=== PATIENT | male | born 1970 | race Caucasian/White ===

== ENCOUNTER 2017-10-29 12:38 | Emergency (ER) | payer SELFPAY ==
[~2017-10-29] VITALS: Ht 175.3 cm; Wt 99.8 kg
[2017-10-29 14:04] LABS: Basophils # (auto) 0.1 uL; Basophils % (auto) 1.3 % (0.0-2.0); Eosinophils # (auto) 0.1 uL; Eosinophils % (auto) 0.9 % (0.0-7.0); Hematocrit 47.3 % (41.0-53.0); Hemoglobin 15.4 g/dL (13.5-17.5); Lymphocytes # (auto) 0.4 uL; Lymphocytes % (auto) 4.6 % (10.0-50.0); Mean Corpuscular Hemoglobin 29.2 pg (28.0-32.0); Mean Corpuscular Hgb Conc. 32.7 g/dL (32.0-36.0); Mean Corpuscular Volume 89.4 fL (80.0-100.0); Monocytes # (auto) 0.5 uL; Monocytes % (auto) 5.6 % (0.0-12.0); Neutrophils # (auto) 7.9 uL; Neutrophils % (auto) 87.6 % (37.0-80.0); Nucleated Red Blood Cells % 0.4 %; Platelet Count (auto) 188 10^3/uL (140-450); Red Blood Cells 5.29 10^6/uL (4.5-5.90); Red Cell Distribution Width 14.9 % (11.8-14.3)
[2017-10-29 14:20] LABS: Albumin 3.8 g/dL (3.4-5.0); BUN/Creatinine Ratio 14.6; Calcium 8.5 mg/dL (8.5-10.1); Potassium 4.2 mmol/L (3.5-5.1)
[2017-10-29 14:24] LABS: Bilirubin, Total 1.2 mg/dL (0.2-1.0); Total Protein 6.7 g/dL (6.4-8.2)
[2017-10-29] MEDS ORDERED: cloNIDine HCL 0.1 MG TAB ONE (14:56)
[2017-10-29] MEDS ORDERED: cloNIDine HCL 0.1 MG TAB PO ONE (15:15)
[2017-10-29 16:01] VITALS: BP 187/137
== END 2017-10-29 16:02 | disposition left against medical advice (07) ==
LOC: ER 12:38
DX: K29.70 Gastritis, unspecified, without bleeding (principal); I10 Essential (primary) hypertension; Z53.29 Procedure and treatment not carried out because of patient's decision for other reasons
CPT/HCPCS: 36415; 71046; 80053; 84484; 85025; 93005

== ENCOUNTER 2017-11-01 03:53 | Inpatient (IN) | payer MEDICAID ==
[~2017-11-01] VITALS: Ht 188 cm; Wt 82.3 kg
[2017-11-01] MEDS ORDERED: cloNIDine HCL 0.1 MG TAB PO ONE (04:30)
[2017-11-01] MEDS ORDERED: ASPirin 81 mg TAB PO ONE (04:30)
[2017-11-01] MEDS ORDERED: NIFEdipine 10 MG CAP ONE (05:10)
[2017-11-01] MEDS ORDERED: NIFEdipine 10 MG CAP PO ONE (05:15)
[2017-11-01 05:26] LABS: Alcohol, Urine < 3.0 mg/dL (0-5); Amphetamine Screen, Urine NEGATIVE (NEGATIVE); Barbiturate Scree,Urine NEGATIVE (NEGATIVE); Benzodiazephine Screen, Urine NEGATIVE (NEGATIVE); Cannabinoid Screen, Urine NEGATIVE (NEGATIVE); Cocaine Screen, Urine NEGATIVE (NEGATIVE); Opiate Scree,Urine NEGATIVE (NEGATIVE); Phencyclidine Screen, Urine NEGATIVE (NEGATIVE)
[2017-11-01 05:28] LABS: Urine Bacteria NONE SEEN /hpf (None Seen); Urine Blood Negative /uL (Negative); Urine Hyaline Cast FEW /lpf (0 - 2); Urine Specific Gravity 1.009 (1.001-1.035); Urine WBC 1 /hpf (0 - 3)
[2017-11-01 05:30] LABS: Basophils # (auto) 0 uL; Basophils % (auto) 0.4 % (0.0-2.0); Eosinophils # (auto) 0.1 uL; Eosinophils % (auto) 0.9 % (0.0-7.0); Hematocrit 44.8 % (41.0-53.0); Hemoglobin 15.1 g/dL (13.5-17.5); Lymphocytes # (auto) 1.1 uL; Lymphocytes % (auto) 11.8 % (10.0-50.0); Mean Corpuscular Hemoglobin 30.1 pg (28.0-32.0); Mean Corpuscular Hgb Conc. 33.6 g/dL (32.0-36.0); Mean Corpuscular Volume 89.6 fL (80.0-100.0); Monocytes # (auto) 0.7 uL; Monocytes % (auto) 7.6 % (0.0-12.0); Neutrophils # (auto) 7.6 uL; Neutrophils % (auto) 79.3 % (37.0-80.0); Nucleated Red Blood Cells % 0.7 %; Platelet Count (auto) 201 10^3/uL (140-450); Red Cell Distribution Width 14.7 % (11.8-14.3); White Blood Cell 9.6 10^3/uL (4.4-10.8)
[2017-11-01 05:31] LABS: Albumin 3.6 g/dL (3.4-5.0); BUN/Creatinine Ratio 16.3; Bilirubin, Total 0.6 mg/dL (0.2-1.0); Calcium 8.5 mg/dL (8.5-10.1); Magnesium 2.5 mg/dL (1.6-2.6); Potassium 3.9 mmol/L (3.5-5.1); Total Protein 6.8 g/dL (6.4-8.2)
[2017-11-01 05:43] LABS: INR 1.11 (0.9-1.15); Partial Thromboplastin Time 24.3 sec (22.64-33.71); Prothrombin Time 12.1 sec (9.37-12.3)
[2017-11-01 06:32] LABS: Amylase 20 U/L (25-115); Lipase 71 U/L (73-393)
[2017-11-01] MEDS ORDERED: FUROSEMIDE 40 MG/4 ML VIAL IV ONE (08:30)
[2017-11-01] MEDS ORDERED: MORPHINE SULFATE 4 MG/ML SYR/VIAL IV PRN ×2 (08:45)
[2017-11-01] MEDS ORDERED: PROMETHAZINE HCL 25 MG/ML 1ML IV PRN (08:45)
[2017-11-01] MEDS ORDERED: LACTULOSE 20Gm/30ML SOLN PO PRN (08:45)
[2017-11-01] MEDS ORDERED: NITROGLYCERIN 0.4 MG SL TAB SL PRN (08:45)
[2017-11-01] MEDS ORDERED: POTASSIUM CHL 20 Meq TABLET PO SCH (10:00)
[2017-11-01] MEDS ORDERED: ENALAPRIL MALEATE 2.5 MG TAB PO SCH (10:00)
[2017-11-01] MEDS ORDERED: FUROSEMIDE 40 MG/4 ML VIAL IV SCH (10:00)
[2017-11-01] MEDS: ASPirin 81 mg TAB PO SCH (10:22)
[2017-11-01] MEDS: ENOXAPARIN SOD 40 MG/0.4 ML SYRINGE SC SCH (10:23)
[2017-11-01] MEDS: NITROGLYCERIN 0.2MG/HR TOPICAL PATCH TD SCH (10:23)
[2017-11-01] MEDS: PANTOPRAZOLE 40 MG TAB PO SCH (10:24)
[2017-11-01] MEDS ORDERED: OPTISON 3ml Vial for INJ IV ONE (10:34)
[2017-11-01] MEDS ORDERED: ENALAPRIL MALEATE 2.5 MG TAB PO ONE (12:45)
[2017-11-01] MEDS ORDERED: FUROSEMIDE 20 MG/2 ML VIAL IV ONE (14:00)
[2017-11-01] MEDS: SODIUM CHLOR 0.9% PF (SALINE LOCK) 10ML VIAL IV SCH ×2 (14:05→21:31)
[2017-11-01] MEDS: hydrALAZINE HCL 20 MG/ML VL IV PRN (14:06)
[2017-11-01] MEDS ORDERED: NITROGLYCERIN 50MG/250ML 250 ML IV SCH (15:45)
[2017-11-01] MEDS: NICARDIPINE 25MG/250ML BAG KIT 250 ML IV SCH ×2 (17:00→21:31)
[2017-11-01] MEDS: POTASSIUM CHL 20 Meq TABLET PO SCH (18:10)
[2017-11-01] MEDS: ENALAPRIL MALEATE 2.5 MG TAB PO SCH (21:31)
[2017-11-02] VITALS (49 sets, daily range): BP systolic 129–184; BP diastolic 75–121
[2017-11-02 04:09] LABS: Basophils # (auto) 0 uL; Basophils % (auto) 0.4 % (0.0-2.0); Eosinophils # (auto) 0.1 uL; Hematocrit 46.7 % (41.0-53.0); Lymphocytes # (auto) 0.8 uL; Mean Corpuscular Hemoglobin 29.8 pg (28.0-32.0); Mean Corpuscular Hgb Conc. 34.3 g/dL (32.0-36.0); Monocytes # (auto) 1.1 uL; Monocytes % (auto) 10.6 % (0.0-12.0); Neutrophils # (auto) 8.1 uL; Nucleated Red Blood Cells % 0.1 %; Platelet Count (auto) 187 10^3/uL (140-450); Red Blood Cells 5.37 10^6/uL (4.5-5.90); Red Cell Distribution Width 14.8 % (11.8-14.3); White Blood Cell 10.1 10^3/uL (4.4-10.8)
[2017-11-02 04:34] LABS: Albumin 3.7 g/dL (3.4-5.0); BUN/Creatinine Ratio 16.2; Calcium 8.7 mg/dL (8.5-10.1); Potassium 3.2 mmol/L (3.5-5.1)
[2017-11-02 04:38] LABS: Bilirubin, Total 1.1 mg/dL (0.2-1.0); Total Protein 6.8 g/dL (6.4-8.2)
[2017-11-02] MEDS: FUROSEMIDE 40 MG/4 ML VIAL IV SCH ×2 (06:21→18:06)
[2017-11-02] MEDS: SODIUM CHLOR 0.9% PF (SALINE LOCK) 10ML VIAL IV SCH ×3 (06:26→22:10)
[2017-11-02] MEDS: NICARDIPINE 25MG/250ML BAG KIT 250 ML IV SCH ×2 (07:48→08:00)
[2017-11-02] MEDS: POTASSIUM CHL 20 Meq TABLET PO SCH ×2 (08:19→18:06)
[2017-11-02] MEDS: HYDROcodone-ACET 5/325MG TAB PO PRN (09:09)
[2017-11-02] MEDS ORDERED: POTASSIUM CHL 20 Meq TABLET PO ONE ×2 (10:00→12:00)
[2017-11-02] MEDS: ASPirin 81 mg TAB PO SCH (10:30)
[2017-11-02] MEDS: CARVEDILOL 3.125 MG TAB PO SCH ×2 (10:30→22:09)
[2017-11-02] MEDS: NITROGLYCERIN 0.2MG/HR TOPICAL PATCH TD SCH (10:32)
[2017-11-02] MEDS: PANTOPRAZOLE 40 MG TAB PO SCH (10:32)
[2017-11-02] MEDS: ENOXAPARIN SOD 40 MG/0.4 ML SYRINGE SC SCH (10:32)
[2017-11-02] MEDS: ENALAPRIL MALEATE 2.5 MG TAB PO SCH ×2 (10:32→22:10)
[2017-11-02 13:59] LABS: Hepatitis B Surface Antibody Negative
[2017-11-02 14:12] LABS: Hepatitis B Surface Antigen Negative (Negative)
[2017-11-02 14:37] LABS: Hepatitis C Antibody Negative (Negative)
[2017-11-02 14:38] LABS: Hepatitis A Total Antibody Negative; Hepatitis B Core Total AB Negative
[2017-11-02] MEDS: hydrALAZINE HCL 20 MG/ML VL IV PRN ×2 (16:45→23:49)
[2017-11-03] VITALS (7 sets, daily range): BP systolic 114–174; BP diastolic 62–113
[2017-11-03] MEDS: hydrALAZINE HCL 20 MG/ML VL IV PRN ×6 (03:56→23:55)
[2017-11-03] MEDS: HYDROcodone-ACET 5/325MG TAB PO PRN (05:09)
[2017-11-03] MEDS: SODIUM CHLOR 0.9% PF (SALINE LOCK) 10ML VIAL IV SCH ×3 (05:30→21:29)
[2017-11-03] MEDS: FUROSEMIDE 40 MG/4 ML VIAL IV SCH ×2 (05:30→17:42)
[2017-11-03 05:56] LABS: BUN/Creatinine Ratio 14.2; Magnesium 2.2 mg/dL (1.6-2.6); Potassium 3.8 mmol/L (3.5-5.1)
[2017-11-03] MEDS: POTASSIUM CHL 20 Meq TABLET PO SCH ×2 (08:42→17:40)
[2017-11-03] MEDS: ASPirin 81 mg TAB PO SCH (10:15)
[2017-11-03] MEDS: CARVEDILOL 3.125 MG TAB PO SCH ×2 (10:15→21:28)
[2017-11-03] MEDS: PANTOPRAZOLE 40 MG TAB PO SCH (10:16)
[2017-11-03] MEDS: ENALAPRIL MALEATE 2.5 MG TAB PO SCH ×2 (10:16→21:29)
[2017-11-03] MEDS: NITROGLYCERIN 0.2MG/HR TOPICAL PATCH TD SCH (10:17)
[2017-11-03] MEDS: ENOXAPARIN SOD 40 MG/0.4 ML SYRINGE SC SCH (10:18)
[2017-11-03] MEDS: LORazepam 0.5 MG TAB PO PRN (16:08)
[2017-11-04 00:04] VITALS: BP 156/101
[2017-11-04] MEDS: TEMAZEPAM 15 MG CAP PO PRN ×2 (01:41→23:15)
[2017-11-04] MEDS: ACETAMINOPHEN 500 MG TAB PO PRN ×2 (01:43→16:21)
[2017-11-04] MEDS: hydrALAZINE HCL 20 MG/ML VL IV PRN ×5 (01:52→15:27)
[2017-11-04] MEDS: LORazepam 0.5 MG TAB PO PRN (03:24)
[2017-11-04] MEDS ORDERED: hydrALAZINE HCL 20 MG/ML VL ONE (03:34)
[2017-11-04 04:08] VITALS: BP 179/104
[2017-11-04 05:48] LABS: Basophils # (auto) 0 uL; Basophils % (auto) 0.3 % (0.0-2.0); Eosinophils # (auto) 0.1 uL; Eosinophils % (auto) 0.7 % (0.0-7.0); Hematocrit 51.2 % (41.0-53.0); Hemoglobin 17.4 g/dL (13.5-17.5); Lymphocytes # (auto) 0.6 uL; Mean Corpuscular Hemoglobin 29.7 pg (28.0-32.0); Mean Corpuscular Hgb Conc. 33.9 g/dL (32.0-36.0); Mean Corpuscular Volume 87.8 fL (80.0-100.0); Monocytes % (auto) 9.3 % (0.0-12.0); Neutrophils # (auto) 9.4 uL; Neutrophils % (auto) 84.7 % (37.0-80.0); Platelet Count (auto) 208 10^3/uL (140-450); Red Blood Cells 5.84 10^6/uL (4.5-5.90); Red Cell Distribution Width 15.1 % (11.8-14.3); White Blood Cell 11.1 10^3/uL (4.4-10.8)
[2017-11-04 06:05] LABS: Calcium 8.9 mg/dL (8.5-10.1); Magnesium 2.4 mg/dL (1.6-2.6)
[2017-11-04 06:06] LABS: BUN/Creatinine Ratio 15.7
[2017-11-04] MEDS: SODIUM CHLOR 0.9% PF (SALINE LOCK) 10ML VIAL IV SCH ×3 (06:31→21:07)
[2017-11-04] MEDS: FUROSEMIDE 40 MG/4 ML VIAL IV SCH ×2 (06:31→17:25)
[2017-11-04 07:50] VITALS: BP 156/102
[2017-11-04] MEDS: POTASSIUM CHL 20 Meq TABLET PO SCH ×2 (08:55→17:23)
[2017-11-04] MEDS: ENOXAPARIN SOD 40 MG/0.4 ML SYRINGE SC SCH (09:17)
[2017-11-04] MEDS: NITROGLYCERIN 0.2MG/HR TOPICAL PATCH TD SCH (09:17)
[2017-11-04] MEDS: ENALAPRIL MALEATE 2.5 MG TAB PO SCH ×3 (09:18→21:07)
[2017-11-04] MEDS: ASPirin 81 mg TAB PO SCH (09:19)
[2017-11-04] MEDS: PANTOPRAZOLE 40 MG TAB PO SCH (09:19)
[2017-11-04] MEDS: CARVEDILOL 3.125 MG TAB PO SCH ×2 (09:19→21:06)
[2017-11-04 11:59] VITALS: BP 169/115
[2017-11-04 15:50] VITALS: BP 163/102
[2017-11-04] MEDS ORDERED: amLODIPine BESYLATE 5 MG TAB PO SCH (17:00)
[2017-11-04] MEDS: HYDROcodone-ACET 5/325MG TAB PO PRN (21:11)
[2017-11-04 23:37] VITALS: BP 180/97
[2017-11-05] VITALS (8 sets, daily range): BP systolic 146–179; BP diastolic 101–130
[2017-11-05 05:20] LABS: Basophils # (auto) 0 uL; Basophils % (auto) 0.3 % (0.0-2.0); Eosinophils # (auto) 0.1 uL; Lymphocytes # (auto) 0.9 uL
[2017-11-05 05:22] LABS: Eosinophils % (auto) 1.1 % (0.0-7.0); Hematocrit 54.5 % (41.0-53.0); Hemoglobin 18.1 g/dL (13.5-17.5); Lymphocytes % (auto) 9.1 % (10.0-50.0); Mean Corpuscular Hemoglobin 29.4 pg (28.0-32.0); Mean Corpuscular Hgb Conc. 33.2 g/dL (32.0-36.0); Mean Corpuscular Volume 88.4 fL (80.0-100.0); Monocytes # (auto) 1.2 uL; Monocytes % (auto) 12.7 % (0.0-12.0); Neutrophils # (auto) 7.4 uL; Neutrophils % (auto) 76.8 % (37.0-80.0); Platelet Count (auto) 226 10^3/uL (140-450); Red Blood Cells 6.16 10^6/uL (4.5-5.90); Red Cell Distribution Width 15.1 % (11.8-14.3); White Blood Cell 9.7 10^3/uL (4.4-10.8)
[2017-11-05 05:31] LABS: BUN/Creatinine Ratio 16.7; Calcium 9.1 mg/dL (8.5-10.1); Magnesium 2.7 mg/dL (1.6-2.6); Potassium 3.9 mmol/L (3.5-5.1)
[2017-11-05] MEDS: FUROSEMIDE 40 MG/4 ML VIAL IV SCH (06:13)
[2017-11-05] MEDS: SODIUM CHLOR 0.9% PF (SALINE LOCK) 10ML VIAL IV SCH ×3 (06:13→21:03)
[2017-11-05] MEDS ORDERED: ADENOSINE 68 MG in GIVE UN-DILUTED 0 ML IV ONE (08:15)
[2017-11-05] MEDS: POTASSIUM CHL 20 Meq TABLET PO SCH ×2 (11:15→17:56)
[2017-11-05] MEDS: PANTOPRAZOLE 40 MG TAB PO SCH (11:16)
[2017-11-05] MEDS: ASPirin 81 mg TAB PO SCH (11:16)
[2017-11-05] MEDS: ENALAPRIL MALEATE 2.5 MG TAB PO SCH ×2 (11:20→21:03)
[2017-11-05] MEDS: ENOXAPARIN SOD 40 MG/0.4 ML SYRINGE SC SCH (11:20)
[2017-11-05] MEDS: SPIRONOLACTONE 25 MG TAB PO SCH (11:21)
[2017-11-05] MEDS ORDERED: CARVEDILOL 3.125 MG TAB PO ONE (14:30)
[2017-11-05] MEDS: FUROSEMIDE 40 MG TAB PO SCH (17:57)
[2017-11-05] MEDS: CARVEDILOL 12.5 MG TAB PO SCH (21:03)
[2017-11-05] MEDS ORDERED: CARVEDILOL 12.5 MG TAB PO SCH (22:00)
[2017-11-05] MEDS: TEMAZEPAM 15 MG CAP PO PRN (22:48)
[2017-11-06 04:18] VITALS: BP 151/112
[2017-11-06 05:16] LABS: Basophils # (auto) 0 uL; Eosinophils # (auto) 0.2 uL; Eosinophils % (auto) 2.5 % (0.0-7.0); Hemoglobin 18.4 g/dL (13.5-17.5); Neutrophils # (auto) 4.5 uL; White Blood Cell 6.9 10^3/uL (4.4-10.8)
[2017-11-06 05:18] LABS: Basophils % (auto) 0.5 % (0.0-2.0); Hematocrit 55.1 % (41.0-53.0); Lymphocytes # (auto) 1.3 uL; Lymphocytes % (auto) 18.8 % (10.0-50.0); Mean Corpuscular Hemoglobin 29.5 pg (28.0-32.0); Mean Corpuscular Hgb Conc. 33.4 g/dL (32.0-36.0); Mean Corpuscular Volume 88.3 fL (80.0-100.0); Monocytes # (auto) 0.9 uL; Monocytes % (auto) 13.3 % (0.0-12.0); Neutrophils % (auto) 64.9 % (37.0-80.0); Nucleated Red Blood Cells % 0.1 %; Platelet Count (auto) 199 10^3/uL (140-450); Red Blood Cells 6.24 10^6/uL (4.5-5.90); Red Cell Distribution Width 14.7 % (11.8-14.3)
[2017-11-06 05:32] LABS: BUN/Creatinine Ratio 19.7; Calcium 9.2 mg/dL (8.5-10.1); Potassium 4.2 mmol/L (3.5-5.1)
[2017-11-06] MEDS: SODIUM CHLOR 0.9% PF (SALINE LOCK) 10ML VIAL IV SCH (05:59)
[2017-11-06] MEDS: FUROSEMIDE 40 MG TAB PO SCH (05:59)
[2017-11-06 08:00] VITALS: BP 154/108
[2017-11-06] MEDS: POTASSIUM CHL 20 Meq TABLET PO SCH (08:17)
[2017-11-06] MEDS: ENOXAPARIN SOD 40 MG/0.4 ML SYRINGE SC SCH ×2 (09:22→09:27)
[2017-11-06] MEDS: ENALAPRIL MALEATE 2.5 MG TAB PO SCH (09:22)
[2017-11-06] MEDS: CARVEDILOL 12.5 MG TAB PO SCH (09:23)
[2017-11-06] MEDS: PANTOPRAZOLE 40 MG TAB PO SCH (09:23)
[2017-11-06] MEDS: SPIRONOLACTONE 25 MG TAB PO SCH (09:23)
[2017-11-06] MEDS: ASPirin 81 mg TAB PO SCH (09:23)
[2017-11-06 12:00] VITALS: BP 141/107
[2017-11-06 13:07] VITALS: BP 141/107
== END 2017-11-06 13:09 | disposition home or self-care (01) | DRG 194 ==
LOC: ER 03:53 → TELE 03:54 → ICU WEST 11-02 01:49 → DOU IN ICU 11-02 15:38
PROVIDERS: ADMIT Internal Medicine; ATTEND Family Medicine
DX: I13.0 Hypertensive heart and chronic kidney disease with heart failure and stage 1 through stage 4 chronic kidney disease, or unspecified chronic kidney disease (principal); N17.0 Acute kidney failure with tubular necrosis; I16.0 Hypertensive urgency; I44.7 Left bundle-branch block, unspecified; I42.0 Dilated cardiomyopathy; R79.89 Other specified abnormal findings of blood chemistry; I50.21 Acute systolic (congestive) heart failure; N18.3 Chronic kidney disease, stage 3 (moderate); Z79.82 Long term (current) use of aspirin; Z79.899 Other long term (current) drug therapy; Z82.49 Family history of ischemic heart disease and other diseases of the circulatory system; Z87.891 Personal history of nicotine dependence
CPT/HCPCS: 36415; 70450; 71045; 71046; 76700; 78452; 80048; 80053; 80061; 80307; 81001; 82150; 82550; 83690; 83735; 83880; 84443; 84484; 85025; 85379; 85610; 85652; 85730; 86141; 86704; 86706; 86708; 86803; 87081; 87340; 93005; 93017; 93306; 96374; J0153; Q9956

== ENCOUNTER 2019-11-29 06:42 | Inpatient (IN) | payer MEDICAID ==
[2019-11-29] VITALS (18 sets, daily range): BP systolic 124–148; BP diastolic 79–98
[~2019-11-29] VITALS: Ht 175.3 cm; Wt 75.2 kg
[2019-11-29] MEDS ORDERED: SODIUM CHLORIDE 0.9% 1,000 ML IV ONE (07:10)
[2019-11-29] MEDS ORDERED: SODIUM CHLORIDE 0.9% 500 ML IV ONE (07:10)
[2019-11-29] MEDS ORDERED: METOCLOPRAMIDE HCL 5MG/ml INJ 2ml VIAL IV ONE (07:15)
[2019-11-29] MEDS ORDERED: MORPHINE SULF INJ 2 MG/ML SYRINGE 1ML IV ONE (07:15)
[2019-11-29 08:37] LABS: Calcium 8.8 mg/dL (8.5-10.1); Potassium 3.7 mmol/L (3.5-5.1)
[2019-11-29 08:38] LABS: Basophils # (auto) 0 10 ^3/uL (0-0.2); Eosinophils # (auto) 0 10 ^3/uL (0-0.8); Eosinophils % (auto) 13.3 % (0.0-7.0); Hematocrit 20.2 % (41.0-53.0); Lymphocytes # (auto) 0.1 10 ^3/uL (0.4-5.4); Mean Corpuscular Hemoglobin 26.5 pg (28.0-32.0); Mean Corpuscular Hgb Conc. 33.4 g/dL (32.0-36.0); Mean Corpuscular Volume 79.5 fL (80.0-100.0); Monocytes # (auto) 0 10 ^3/uL (0-1.3); Monocytes % (auto) 1.3 % (0.0-12.0); Neutrophils # (auto) 0 10 ^3/uL (1.6-8.6); Neutrophils % (auto) 3.5 % (37.0-80.0); Nucleated Red Blood Cells % 0.9 %; Red Blood Cells 2.54 10^6/uL (4.5-5.90); Red Cell Distribution Width 16.3 % (11.8-14.3)
[2019-11-29 08:40] LABS: Albumin 3.1 g/dL (3.4-5.0); BUN/Creatinine Ratio 15.8; Lymphocytes % (auto) 81.9 % (10.0-50.0); Magnesium 1.4 mg/dL (1.6-2.6)
[2019-11-29 08:43] LABS: Bilirubin, Total 1.1 mg/dL (0.2-1.0); Hemoglobin 6.7 g/dL (13.5-17.5); Platelet Count (auto) 8 10^3/uL (140-450); Total Protein 6.7 g/dL (6.4-8.2); White Blood Cell 0.1 10^3/uL (4.4-10.8)
[2019-11-29 09:44] LABS: Urine Bacteria FEW /hpf (None Seen); Urine Blood Negative /uL (Negative); Urine Specific Gravity 1.013 (1.001-1.035); Urine WBC 1 /hpf (0 - 3)
[2019-11-29] MEDS ORDERED: ACETAMINOPHEN 325 MG TAB PO ONE (10:00)
[2019-11-29 10:20] LABS: INR 1.11 (0.9-1.15); Partial Thromboplastin Time 32.4 sec (23.64-32.05)
[2019-11-29] MEDS: MAGNESIUM SULFATE 1GM/100ML 100 ML IV SCH ×2 (10:20→11:49)
[2019-11-29] MEDS ORDERED: PIPERACILLIN-TAZOB 3.375GM 100 ML IV ONE ×2 (11:30)
[2019-11-29] MEDS ORDERED: FLUCONAZOLE 200MG/100ML 100 ML IV ONE (11:45)
[2019-11-29 11:47] LABS: Urine Bacteria NONE SEEN /hpf (None Seen); Urine Blood 2+ /uL (Negative); Urine Specific Gravity 1.015 (1.001-1.035); Urine WBC 99 /hpf (0 - 3)
[2019-11-29] MEDS: PIPERACILLIN-TAZOB 3.375GM 100 ML IV SCH ×2 (12:24→18:00)
[2019-11-29] MEDS: SODIUM CHLORIDE 0.9% 1,000 ML IV SCH ×2 (12:58→22:42)
[2019-11-29] MEDS ORDERED: FILGRASTIM (TBO) 300 MCG/0.5 ML SYRG SC ONE (13:15)
[2019-11-29] MEDS: ACYCLOVIR SOD 50MG/ML 500 MG in D5W 5% 100 ML IV SCH ×2 (14:00→22:42)
[2019-11-29] MEDS: LINEZOLID 600MG/300ML 300 ML IV SCH ×2 (14:12→22:41)
[2019-11-29] MEDS: HYDROcodone-ACET 5/325MG TAB PO PRN (14:14)
[2019-11-29] MEDS: PROMETHAZINE HCL 25 MG/ML 1ML IV PRN ×2 (14:14→20:20)
[2019-11-29] MEDS ORDERED: ACYCLOVIR SODIUM (50 MG/ ML) 10 ML VIAL IV ONE (22:38)
[2019-11-29] MEDS: FAMOTIDINE (10MG/ML) 2ML VL IV SCH (22:41)
[2019-11-30] VITALS (14 sets, daily range): BP systolic 123–161; BP diastolic 83–111
[2019-11-30] MEDS: PIPERACILLIN-TAZOB 3.375GM 100 ML IV SCH ×5 (00:24→23:50)
[2019-11-30] MEDS: TEMAZEPAM 15 MG CAP PO PRN ×2 (00:27→21:13)
[2019-11-30] MEDS: HYDROcodone-ACET 5/325MG TAB PO PRN ×3 (00:27→12:38)
[2019-11-30] MEDS: PROMETHAZINE HCL 25 MG/ML 1ML IV PRN ×5 (00:27→18:26)
[2019-11-30] MEDS: ACETAMINOPHEN 500 MG TAB PO PRN ×3 (04:15→21:03)
[2019-11-30] MEDS: ACYCLOVIR SOD 50MG/ML 500 MG in D5W 5% 100 ML IV SCH ×3 (05:12→22:00)
[2019-11-30] MEDS: SODIUM CHLORIDE 0.9% 1,000 ML IV SCH ×4 (05:14→23:29)
[2019-11-30 07:06] LABS: Albumin 2.2 g/dL (3.4-5.0); Calcium 7.2 mg/dL (8.5-10.1); Potassium 3.2 mmol/L (3.5-5.1)
[2019-11-30 07:09] LABS: BUN/Creatinine Ratio 14.7; Bilirubin, Total 2.7 mg/dL (0.2-1.0); Total Protein 5.3 g/dL (6.4-8.2)
[2019-11-30 07:12] LABS: Basophils # (auto) 0 10 ^3/uL (0-0.2); Eosinophils # (auto) 0 10 ^3/uL (0-0.8); Eosinophils % (auto) 12.4 % (0.0-7.0); Hematocrit 21.3 % (41.0-53.0); Hemoglobin 7.3 g/dL (13.5-17.5); Lymphocytes # (auto) 0.1 10 ^3/uL (0.4-5.4); Mean Corpuscular Hemoglobin 27.9 pg (28.0-32.0); Mean Corpuscular Hgb Conc. 34.4 g/dL (32.0-36.0); Mean Corpuscular Volume 81.3 fL (80.0-100.0); Monocytes # (auto) 0 10 ^3/uL (0-1.3); Monocytes % (auto) 2.1 % (0.0-12.0); Neutrophils # (auto) 0 10 ^3/uL (1.6-8.6); Neutrophils % (auto) 2.6 % (37.0-80.0); Red Blood Cells 2.62 10^6/uL (4.5-5.90); Red Cell Distribution Width 16.8 % (11.8-14.3)
[2019-11-30 07:14] LABS: Lymphocytes % (auto) 82.9 % (10.0-50.0)
[2019-11-30 07:15] LABS: Platelet Count (auto) 20 10^3/uL (140-450)
[2019-11-30 07:18] LABS: White Blood Cell 0.1 10^3/uL (4.4-10.8)
[2019-11-30] MEDS: FAMOTIDINE (10MG/ML) 2ML VL IV SCH ×2 (08:33→21:12)
[2019-11-30] MEDS: LINEZOLID 600MG/300ML 300 ML IV SCH ×2 (08:34→21:13)
[2019-11-30] MEDS ORDERED: FILGRASTIM (TBO) 300 MCG/0.5 ML SYRG SC SCH (10:00)
[2019-11-30] MEDS ORDERED: FLUCONAZOLE 200MG/100ML 100 ML IV SCH (10:00)
[2019-11-30] MEDS ORDERED: POTASSIUM CHL 20 Meq TABLET PO ONE (10:00)
[2019-11-30] MEDS ORDERED: SPIR50TA5 PO (11:38)
[2019-11-30] MEDS ORDERED: FURO40TA4 PO (11:38)
[2019-11-30] MEDS ORDERED: LISI40TA PO (11:38)
[2019-11-30] MEDS ORDERED: PAR20T PO (11:38)
[2019-11-30] MEDS ORDERED: ATO40T PO (11:38)
[2019-11-30] MEDS ORDERED: CAR125T PO (11:38)
[2019-11-30] MEDS ORDERED: CLON0.1T PO (11:38)
[2019-11-30] MEDS ORDERED: FUROSEMIDE 40 MG/4 ML VIAL IV ONE (13:15)
[2019-11-30] MEDS ORDERED: FUROSEMIDE 100 MG/10ML VIAL IV ONE (13:30)
[2019-11-30] MEDS ORDERED: AZITHROMYCIN 250 MG TAB PO ONE (14:30)
[2019-11-30] MEDS ORDERED: oxyCODONE ER 10 MG TAB PO ONE (14:45)
[2019-11-30] MEDS ORDERED: POLYETHYLENE GLYCOL 17 GM PWDR PO ONE (14:45)
[2019-11-30 21:16] LABS: Basophils # (auto) 0 10 ^3/uL (0-0.2); Monocytes # (auto) 0 10 ^3/uL (0-1.3); Neutrophils # (auto) 0 10 ^3/uL (1.6-8.6)
[2019-11-30 21:18] LABS: Eosinophils # (auto) 0.1 10 ^3/uL (0-0.8); Hematocrit 27.1 % (41.0-53.0); Hemoglobin 9.1 g/dL (13.5-17.5); Lymphocytes # (auto) 0.3 10 ^3/uL (0.4-5.4); Mean Corpuscular Hemoglobin 27.7 pg (28.0-32.0); Mean Corpuscular Hgb Conc. 33.7 g/dL (32.0-36.0); Mean Corpuscular Volume 82.2 fL (80.0-100.0); Monocytes % (auto) 3.5 % (0.0-12.0); Nucleated Red Blood Cells % 8.6 %; Platelet Count (auto) 21 10^3/uL (140-450); Red Blood Cells 3.29 10^6/uL (4.5-5.90)
[2019-11-30 21:20] LABS: Lymphocytes % (auto) 70.1 % (10.0-50.0)
[2019-11-30 21:21] LABS: Eosinophils % (auto) 25.4 % (0.0-7.0)
[2019-11-30 21:28] LABS: White Blood Cell 0.4 10^3/uL (4.4-10.8)
[2019-11-30 21:32] LABS: % Iron Saturation 31.8 % (20-55)
[2019-11-30 21:48] LABS: Lactate Dehydrogenase 3744 U/L (87-241)
[2019-11-30] MEDS: oxyCODONE ER 10 MG TAB PO SCH (22:00)
[2019-11-30 22:40] LABS: CRP High Sensitivity > 19.0 mg/dL (< 0.3)
[2019-12-01] VITALS (7 sets, daily range): BP systolic 118–142; BP diastolic 77–105
[2019-12-01] MEDS: PROMETHAZINE HCL 25 MG/ML 1ML IV PRN ×2 (01:34→07:31)
[2019-12-01] MEDS: SODIUM CHLORIDE 0.9% 1,000 ML IV SCH ×3 (04:05→17:46)
[2019-12-01 05:18] LABS: Basophils # (auto) 0 10 ^3/uL (0-0.2); Eosinophils # (auto) 0 10 ^3/uL (0-0.8); Hemoglobin 10.7 g/dL (13.5-17.5); Lymphocytes # (auto) 0.1 10 ^3/uL (0.4-5.4); Monocytes # (auto) 0 10 ^3/uL (0-1.3); Neutrophils # (auto) 0 10 ^3/uL (1.6-8.6)
[2019-12-01] MEDS: PIPERACILLIN-TAZOB 3.375GM 100 ML IV SCH ×3 (05:20→17:46)
[2019-12-01] MEDS: HYDROcodone-ACET 5/325MG TAB PO PRN (05:21)
[2019-12-01 05:26] LABS: Eosinophils % (auto) 5.4 % (0.0-7.0); Hematocrit 31.3 % (41.0-53.0); Mean Corpuscular Hgb Conc. 34.2 g/dL (32.0-36.0); Mean Corpuscular Volume 82.1 fL (80.0-100.0); Monocytes % (auto) 3.7 % (0.0-12.0); Neutrophils % (auto) 2.5 % (37.0-80.0); Red Blood Cells 3.81 10^6/uL (4.5-5.90); Red Cell Distribution Width 17.6 % (11.8-14.3)
[2019-12-01 05:34] LABS: Albumin 2.3 g/dL (3.4-5.0); BUN/Creatinine Ratio 11.1; Calcium 7.5 mg/dL (8.5-10.1); Magnesium 1.4 mg/dL (1.6-2.6); Potassium 3.2 mmol/L (3.5-5.1)
[2019-12-01 05:36] LABS: Bilirubin, Total 3.3 mg/dL (0.2-1.0); Total Protein 6.4 g/dL (6.4-8.2)
[2019-12-01 05:49] LABS: Lymphocytes % (auto) 88.4 % (10.0-50.0); Nucleated Red Blood Cells % 9.9 %
[2019-12-01 05:50] LABS: Platelet Count (auto) 17 10^3/uL (140-450); White Blood Cell 0.1 10^3/uL (4.4-10.8)
[2019-12-01] MEDS: ACYCLOVIR SOD 50MG/ML 500 MG in D5W 5% 100 ML IV SCH ×4 (06:12→21:58)
[2019-12-01] MEDS ORDERED: MAGNESIUM SULFATE 1GM/100ML 100 ML IV ONE (06:15)
[2019-12-01] MEDS ORDERED: POTASSIUM CHLORIDE 20 MEQ, LIDOCAINE 1% (LOCAL ANESTH.) 2 ML in SODIUM CHL 0.9% 100 ML IV ONE (06:15)
[2019-12-01] MEDS: MORPHINE SULF INJ 2 MG/ML SYRINGE 1ML IV PRN ×3 (08:36→20:45)
[2019-12-01] MEDS: LINEZOLID 600MG/300ML 300 ML IV SCH ×2 (08:51→10:22)
[2019-12-01] MEDS ORDERED: POTASSIUM CHL 20 Meq TABLET PO ONE (09:15)
[2019-12-01] MEDS: POLYETHYLENE GLYCOL 17 GM PWDR PO SCH (10:00)
[2019-12-01] MEDS: LISINOPRIL 20 MG TAB PO SCH (10:00)
[2019-12-01] MEDS ORDERED: SOD CHL 0.45% 1,000 ML IV SCH (10:15)
[2019-12-01] MEDS: MAGNESIUM SULFATE 1GM/100ML 100 ML IV SCH ×3 (10:22→14:27)
[2019-12-01] MEDS: AZITHROMYCIN 250 MG TAB PO SCH (10:23)
[2019-12-01] MEDS: FAMOTIDINE (10MG/ML) 2ML VL IV SCH ×2 (10:23→21:58)
[2019-12-01] MEDS: CARVEDILOL 12.5 MG TAB PO SCH ×2 (10:24→21:57)
[2019-12-01] MEDS: oxyCODONE ER 10 MG TAB PO SCH ×2 (10:24→21:58)
[2019-12-01 10:53] LABS: Carcinoembryonic Antigen < 0.50 ng/mL (<5.0 OR =); Ferritin > 1650.0 ng/mL (10-322)
[2019-12-01] MEDS: ACETAMINOPHEN 500 MG TAB PO PRN (11:28)
[2019-12-01] MEDS: FILGRASTIM(TBO) 480 MCG/0.8 ML SYRG SC SCH (11:36)
[2019-12-01 16:29] LABS: Calcium 6.9 mg/dL (8.5-10.1); Magnesium 2.5 mg/dL (1.6-2.6); Potassium 3.1 mmol/L (3.5-5.1)
[2019-12-01 16:31] LABS: BUN/Creatinine Ratio 10.1
[2019-12-01] MEDS: SOD CHL 0.9%/ KCL 40MEQ 1,000 ML IV SCH (19:28)
[2019-12-02] VITALS (12 sets, daily range): BP systolic 119–144; BP diastolic 81–105
[2019-12-02] MEDS: PIPERACILLIN-TAZOB 3.375GM 100 ML IV SCH ×3 (00:38→11:39)
[2019-12-02] MEDS: SOD CHL 0.9%/ KCL 40MEQ 1,000 ML IV SCH ×3 (02:00→17:41)
[2019-12-02] MEDS: ACYCLOVIR SOD 50MG/ML 500 MG in D5W 5% 100 ML IV SCH ×2 (06:20→13:56)
[2019-12-02 08:05] LABS: Basophils # (auto) 0 10 ^3/uL (0-0.2); Eosinophils # (auto) 0 10 ^3/uL (0-0.8); Hemoglobin 7.9 g/dL (13.5-17.5); Lymphocytes # (auto) 0.1 10 ^3/uL (0.4-5.4); Monocytes # (auto) 0 10 ^3/uL (0-1.3); Neutrophils # (auto) 0 10 ^3/uL (1.6-8.6); Red Cell Distribution Width 17.3 % (11.8-14.3)
[2019-12-02 08:07] LABS: Eosinophils % (auto) 7.7 % (0.0-7.0); Hematocrit 23.4 % (41.0-53.0); Mean Corpuscular Hemoglobin 27.6 pg (28.0-32.0); Mean Corpuscular Hgb Conc. 33.9 g/dL (32.0-36.0); Mean Corpuscular Volume 81.6 fL (80.0-100.0); Monocytes % (auto) 14.8 % (0.0-12.0); Neutrophils % (auto) 5.3 % (37.0-80.0); Nucleated Red Blood Cells % 1.9 %; Red Blood Cells 2.87 10^6/uL (4.5-5.90)
[2019-12-02 08:10] LABS: Lymphocytes % (auto) 72.2 % (10.0-50.0)
[2019-12-02 08:11] LABS: INR 1.21 (0.9-1.15); Partial Thromboplastin Time 41.7 sec (23.64-32.05)
[2019-12-02 08:14] LABS: Platelet Count (auto) 9 10^3/uL (140-450); White Blood Cell 0.1 10^3/uL (4.4-10.8)
[2019-12-02] MEDS: PROMETHAZINE HCL 25 MG/ML 1ML IV PRN (08:35)
[2019-12-02] MEDS: MORPHINE SULF INJ 2 MG/ML SYRINGE 1ML IV PRN (08:35)
[2019-12-02] MEDS: CARVEDILOL 12.5 MG TAB PO SCH ×2 (09:51→21:49)
[2019-12-02] MEDS: POLYETHYLENE GLYCOL 17 GM PWDR PO SCH (09:51)
[2019-12-02] MEDS: FAMOTIDINE (10MG/ML) 2ML VL IV SCH ×2 (09:51→21:48)
[2019-12-02] MEDS: oxyCODONE ER 10 MG TAB PO SCH ×2 (09:52→21:49)
[2019-12-02] MEDS: FILGRASTIM(TBO) 480 MCG/0.8 ML SYRG SC SCH (09:52)
[2019-12-02] MEDS: AZITHROMYCIN 250 MG TAB PO SCH (09:52)
[2019-12-02] MEDS: LINEZOLID 600MG/300ML 300 ML IV SCH (10:00)
[2019-12-02] MEDS: LISINOPRIL 20 MG TAB PO SCH (10:14)
[2019-12-02] MEDS ORDERED: POTASSIUM CHL 20 Meq TABLET PO ONE (10:15)
[2019-12-02] MEDS ORDERED: ALPRAZolam 0.5 MG TAB PO PRN (10:15)
[2019-12-02] MEDS: POTASSIUM CHL 20MEQ/100ML 100 ML IV SCH ×3 (11:00→17:40)
[2019-12-02] MEDS ORDERED: VANCOMYCIN PER PHARMACY 0 MG IV SCH (17:00)
[2019-12-02] MEDS: CEFEPIME 2 GM in SODIUM CHL 0.9% 50 ML IV SCH (19:58)
[2019-12-02] MEDS: HYDROcodone-ACET 5/325MG TAB PO PRN (19:59)
[2019-12-02] MEDS: VANCOMYCIN 1GM/250ML 250 ML IV SCH (21:48)
[2019-12-03] MEDS: SOD CHL 0.9%/ KCL 40MEQ 1,000 ML IV SCH ×2 (02:00→10:17)
[2019-12-03] MEDS: HYDROcodone-ACET 5/325MG TAB PO PRN (04:12)
[2019-12-03 05:00] VITALS: BP 140/97
[2019-12-03 07:05] LABS: Basophils # (auto) 0 10 ^3/uL (0-0.2); Eosinophils # (auto) 0 10 ^3/uL (0-0.8); Lymphocytes # (auto) 0.1 10 ^3/uL (0.4-5.4); Mean Corpuscular Hgb Conc. 33.7 g/dL (32.0-36.0); Neutrophils # (auto) 0.1 10 ^3/uL (1.6-8.6); Red Blood Cells 2.98 10^6/uL (4.5-5.90)
[2019-12-03 07:06] LABS: Basophils % (auto) 0.6 % (0.0-2.0); Eosinophils % (auto) 1.2 % (0.0-7.0); Hematocrit 24.5 % (41.0-53.0); Hemoglobin 8.2 g/dL (13.5-17.5); Lymphocytes % (auto) 39.9 % (10.0-50.0); Mean Corpuscular Hemoglobin 27.7 pg (28.0-32.0); Mean Corpuscular Volume 82.2 fL (80.0-100.0); Monocytes # (auto) 0 10 ^3/uL (0-1.3); Monocytes % (auto) 17.4 % (0.0-12.0); Neutrophils % (auto) 40.9 % (37.0-80.0); Nucleated Red Blood Cells % 1.3 %; Platelet Count (auto) 32 10^3/uL (140-450)
[2019-12-03 07:27] LABS: BUN/Creatinine Ratio 10.9; Calcium 7.4 mg/dL (8.5-10.1); Potassium 4.7 mmol/L (3.5-5.1)
[2019-12-03 07:29] LABS: White Blood Cell 0.3 10^3/uL (4.4-10.8)
[2019-12-03 08:00] VITALS: BP 142/101
[2019-12-03] MEDS: CEFEPIME 2 GM in SODIUM CHL 0.9% 50 ML IV SCH (08:13)
[2019-12-03] MEDS: NITROGLYCERIN 0.4 MG SL TAB SL PRN ×3 (08:55→09:06)
[2019-12-03 09:00] VITALS: BP 142/101
[2019-12-03] MEDS: MORPHINE SULF INJ 2 MG/ML SYRINGE 1ML IV PRN (09:14)
[2019-12-03] MEDS: POLYETHYLENE GLYCOL 17 GM PWDR PO SCH (10:00)
[2019-12-03] MEDS: oxyCODONE ER 10 MG TAB PO SCH (10:00)
[2019-12-03] MEDS: VANCOMYCIN 1GM/250ML 250 ML IV SCH (10:17)
[2019-12-03] MEDS: FAMOTIDINE (10MG/ML) 2ML VL IV SCH (10:18)
[2019-12-03] MEDS: FILGRASTIM(TBO) 480 MCG/0.8 ML SYRG SC SCH (10:19)
[2019-12-03] MEDS: CARVEDILOL 12.5 MG TAB PO SCH (10:19)
[2019-12-03] MEDS: AZITHROMYCIN 250 MG TAB PO SCH (10:20)
[2019-12-03] MEDS: LISINOPRIL 20 MG TAB PO SCH (10:20)
[2019-12-03 13:00] VITALS: BP 114/80
[2019-12-03 15:18] VITALS: BP 114/80
== END 2019-12-03 15:55 | disposition home or self-care (01) | DRG 720 ==
LOC: ER 06:42 → TELE 06:43 → DOU IN ICU 16:12 → TELE-EAST 12-01 09:17
PROVIDERS: ADMIT Internal Medicine; ATTEND Internal Medicine
PROC: 30233R1 Transfusion of Nonautologous Platelets into Peripheral Vein, Percutaneous Approach (ICD-10-PCS; principal; 2019-11-29)
PROC: 30233N1 Transfusion of Nonautologous Red Blood Cells into Peripheral Vein, Percutaneous Approach (ICD-10-PCS; 2019-11-29)
DX: A41.9 Sepsis, unspecified organism (principal); D61.810 Antineoplastic chemotherapy induced pancytopenia; N17.9 Acute kidney failure, unspecified; D69.6 Thrombocytopenia, unspecified; E11.22 Type 2 diabetes mellitus with diabetic chronic kidney disease; E44.1 Mild protein-calorie malnutrition; E83.42 Hypomagnesemia; I13.0 Hypertensive heart and chronic kidney disease with heart failure and stage 1 through stage 4 chronic kidney disease, or unspecified chronic kidney disease; I50.22 Chronic systolic (congestive) heart failure; E87.1 Hypo-osmolality and hyponatremia; N18.9 Chronic kidney disease, unspecified; E05.90 Thyrotoxicosis, unspecified without thyrotoxic crisis or storm; I44.7 Left bundle-branch block, unspecified; M51.37 Other intervertebral disc degeneration, lumbosacral region; R50.81 Fever presenting with conditions classified elsewhere; B96.4 Proteus (mirabilis) (morganii) as the cause of diseases classified elsewhere; B95.7 Other staphylococcus as the cause of diseases classified elsewhere; K36 Other appendicitis; N39.0 Urinary tract infection, site not specified; C64.2 Malignant neoplasm of left kidney, except renal pelvis; Z90.79 Acquired absence of other genital organ(s); Z85.47 Personal history of malignant neoplasm of testis; Z82.49 Family history of ischemic heart disease and other diseases of the circulatory system; Z93.6 Other artificial openings of urinary tract status; Z79.899 Other long term (current) drug therapy; Z83.3 Family history of diabetes mellitus; Z68.24 Body mass index [BMI] 24.0-24.9, adult; Z03.818 Encounter for observation for suspected exposure to other biological agents ruled out
CPT/HCPCS: 36415; 71046; 71250; 74176; 80048; 80053; 81001; 82105; 82270; 82378; 82607; 82728; 82746; 83540; 83550; 83605; 83615; 83735; 84443; 84484; 84702; 85025; 85045; 85610; 85730; 86141; 86300; 86301; 86850; 86900; 86901; 86920; 87040; 87070; 87081; 87086; 87088; 87186; 87635; 87804; 87880; 93005; 93306; G0378; J1447; J1450; J2001; J2543; J3480; J3490; J7060

== ENCOUNTER 2019-12-10 22:22 | Emergency (ER) | payer MEDICAID, SELFPAY ==
[~2019-12-10] VITALS: Ht 188 cm; Wt 81.2 kg
[~2019-12-10 22:22] MED LIST: ATO40T PO; CAR125T PO; CLON0.1T PO; FURO40TA4 PO; LISI40TA PO; PAR20T PO; SPIR50TA5 PO
[2019-12-10 23:27] LABS: Hemoglobin 10.7 g/dL (13.5-17.5); Mean Corpuscular Hemoglobin 27.8 pg (28.0-32.0); Mean Corpuscular Hgb Conc. 33.6 g/dL (32.0-36.0); Mean Corpuscular Volume 82.8 fL (80.0-100.0); Platelet Count (auto) 430 10^3/uL (140-450); Red Blood Cells 3.87 10^6/uL (4.5-5.90); Red Cell Distribution Width 18.3 % (11.8-14.3); White Blood Cell 14.3 10^3/uL (4.4-10.8)
[2019-12-10 23:45] LABS: Albumin 2.8 g/dL (3.4-5.0); BUN/Creatinine Ratio 7.1; Calcium 8.5 mg/dL (8.5-10.1); Potassium 3.3 mmol/L (3.5-5.1)
[2019-12-10 23:46] LABS: Basophils % (manual) 0 (0.0-2.0); Blast Cells 0; Eosinophils % (manual) 0 (0-7); Myelocytes % 0; Promyelocytes % 0; Reactive Lymphocytes 0
[2019-12-10 23:48] LABS: Bilirubin, Total 0.7 mg/dL (0.2-1.0); Total Protein 6.8 g/dL (6.4-8.2)
[2019-12-11 00:35] LABS: Band Neutrophils % (manual) 16; Lymphocytes % (manual) 19 (10.0-50.0); Metamyelocytes % 1; Monocytes % (manual) 15 (0-12)
[2019-12-11 00:55] LABS: Urine Bacteria FEW /hpf (None Seen); Urine Blood 3+ /uL (Negative); Urine Mucus FEW (None Seen); Urine Specific Gravity 1.012 (1.001-1.035); Urine WBC 15 /hpf (0 - 3)
[2019-12-11] MEDS ORDERED: SODIUM CHLORIDE 0.9% 1,000 ML IV ONE (01:00)
[2019-12-11] MEDS ORDERED: ONDANSETRON HCL 4 MG/2 ML VIAL IV ONE (01:30)
[2019-12-11] MEDS ORDERED: HYDROcodone-ACET 5/325MG TAB PO ONE (03:15)
[2019-12-11] MEDS ORDERED: CIPROFLOXACIN HCL 500 MG TAB PO ONE (03:15)
[2019-12-11 03:30] VITALS: BP 135/95
== END 2019-12-11 03:39 | disposition home or self-care (01) ==
LOC: ER 22:23
DX: R19.00 Intra-abdominal and pelvic swelling, mass and lump, unspecified site (principal); N39.0 Urinary tract infection, site not specified; I10 Essential (primary) hypertension; Z79.899 Other long term (current) drug therapy
CPT/HCPCS: 36415; 74176; 80053; 81001; 83605; 83690; 83880; 85007; 85027; 87086; 96361; 96374; 99284; J2405; J7030

== ENCOUNTER 2020-08-27 18:34 | Inpatient (IN) | payer MEDICAID ==
[~2020-08-27] VITALS: Ht 188 cm; Wt 54.4 kg
[~2020-08-27 18:34] MED LIST changes: -LISI40TA PO; +LISI40TA11 PO
[2020-08-28 05:21] LABS: Urine Bacteria MANY /hpf (None Seen); Urine Blood 2+ /uL (Negative); Urine Hyaline Cast FEW /lpf (0 - 2); Urine Mucus FEW (None Seen); Urine Specific Gravity 1.021 (1.001-1.035); Urine WBC 396 /hpf (0 - 3); Urine WBC Clumps PRESENT /hpf (None Seen)
[2020-08-28] MEDS ORDERED: cefTRIAXone 1GM/50ML D5W 50 ML IV ONE (11:45)
[2020-08-28] MEDS ORDERED: SODIUM CHLORIDE 0.9% 1,000 ML IVB ONE (11:45)
[2020-08-28 12:57] LABS: Basophils # (auto) 0 10 ^3/uL (0-0.2); Basophils % (auto) 0.6 % (0.0-2.0); Eosinophils # (auto) 0 10 ^3/uL (0-0.8); Eosinophils % (auto) 0.5 % (0.0-7.0); Hematocrit 33.7 % (41.0-53.0); Hemoglobin 11.6 g/dL (13.5-17.5); Lymphocytes # (auto) 0.5 10 ^3/uL (0.4-5.4); Lymphocytes % (auto) 6.7 % (10.0-50.0); Mean Corpuscular Hemoglobin 28.1 pg (28.0-32.0); Mean Corpuscular Hgb Conc. 34.3 g/dL (32.0-36.0); Mean Corpuscular Volume 81.9 fL (80.0-100.0); Monocytes # (auto) 0.4 10 ^3/uL (0-1.3); Neutrophils % (auto) 86.2 % (37.0-80.0); Platelet Count (auto) 226 10^3/uL (140-450); Red Blood Cells 4.11 10^6/uL (4.5-5.90); Red Cell Distribution Width 17.8 % (11.8-14.3); White Blood Cell 6.9 10^3/uL (4.4-10.8)
[2020-08-28 13:35] LABS: Albumin 3.3 g/dL (3.4-5.0); Calcium 9.2 mg/dL (8.5-10.1)
[2020-08-28 13:39] LABS: BUN/Creatinine Ratio 12.1; Bilirubin, Total 0.4 mg/dL (0.2-1.0); Total Protein 7.2 g/dL (6.4-8.2)
[2020-08-28] MEDS ORDERED: NITROGLYCERIN 0.4 MG SL TAB SL PRN (14:45)
[2020-08-28] MEDS ORDERED: MORPHINE SULF INJ 2 MG/ML SYRINGE 1ML IV PRN (14:45)
[2020-08-28] MEDS ORDERED: ACETAMINOPHEN 500 MG TAB PO PRN (14:45)
[2020-08-28 15:31] LABS: INR 1.03 (0.9-1.15); Partial Thromboplastin Time 27.9 sec (23.0-31.2)
[2020-08-28] MEDS: SODIUM CHLORIDE 0.9% 1,000 ML IV SCH ×2 (17:55→20:18)
[2020-08-28] MEDS: DOCUSATE SOD 100 MG CAP PO SCH (20:18)
[2020-08-28] MEDS: HYDROcodone-ACET 5/325MG TAB PO PRN (20:21)
[2020-08-29] MEDS: MORPHINE SULF INJ 2 MG/ML SYRINGE 1ML IV PRN ×3 (02:05→17:32)
[2020-08-29] MEDS: ONDANSETRON HCL 4 MG/2 ML VIAL IV PRN ×2 (02:06→17:33)
[2020-08-29] MEDS: SODIUM CHLORIDE 0.9% 1,000 ML IV SCH ×2 (06:00→14:45)
[2020-08-29] MEDS: HYDROcodone-ACET 5/325MG TAB PO PRN (06:00)
[2020-08-29 07:36] LABS: Basophils # (auto) 0 10 ^3/uL (0-0.2); Basophils % (auto) 0.3 % (0.0-2.0); Eosinophils # (auto) 0 10 ^3/uL (0-0.8); Eosinophils % (auto) 0.1 % (0.0-7.0); Hematocrit 30.5 % (41.0-53.0); Hemoglobin 10.5 g/dL (13.5-17.5); Lymphocytes # (auto) 0.3 10 ^3/uL (0.4-5.4); Lymphocytes % (auto) 2.4 % (10.0-50.0); Mean Corpuscular Hemoglobin 28.4 pg (28.0-32.0); Mean Corpuscular Hgb Conc. 34.5 g/dL (32.0-36.0); Mean Corpuscular Volume 82.3 fL (80.0-100.0); Monocytes # (auto) 0.6 10 ^3/uL (0-1.3); Monocytes % (auto) 5.7 % (0.0-12.0); Neutrophils # (auto) 9.7 10 ^3/uL (1.6-8.6); Neutrophils % (auto) 91.5 % (37.0-80.0); Nucleated Red Blood Cells % 0.1 %; Platelet Count (auto) 173 10^3/uL (140-450); Red Cell Distribution Width 17.8 % (11.8-14.3); White Blood Cell 10.6 10^3/uL (4.4-10.8)
[2020-08-29 08:05] LABS: Calcium 8.3 mg/dL (8.5-10.1); Potassium 4.1 mmol/L (3.5-5.1)
[2020-08-29] MEDS: cefTRIAXone 1GM/50ML D5W 50 ML IV SCH (09:51)
[2020-08-29] MEDS: FAMOTIDINE 20 MG TAB PO SCH (09:51)
[2020-08-29] MEDS: DOCUSATE SOD 100 MG CAP PO SCH ×2 (09:51→23:25)
[2020-08-29] MEDS ORDERED: cloNIDine HCL 0.1 MG TAB PO PRN (14:00)
[2020-08-29] MEDS: FUROSEMIDE 40 MG TAB PO SCH (18:26)
[2020-08-29] MEDS ORDERED: ATORVASTATIN 20 MG TAB PO SCH (22:00)
[2020-08-29] MEDS: CARVEDILOL 12.5 MG TAB PO SCH (23:24)
[2020-08-30] MEDS: HYDROcodone-ACET 5/325MG TAB PO PRN (01:15)
[2020-08-30] MEDS: SODIUM CHLORIDE 0.9% 1,000 ML IV SCH ×2 (04:43→09:13)
[2020-08-30 05:52] LABS: Basophils # (auto) 0 10 ^3/uL (0-0.2); Basophils % (auto) 0.4 % (0.0-2.0); Eosinophils # (auto) 0 10 ^3/uL (0-0.8); Eosinophils % (auto) 0.2 % (0.0-7.0); Hematocrit 32.5 % (41.0-53.0); Hemoglobin 11.2 g/dL (13.5-17.5); Lymphocytes # (auto) 0.3 10 ^3/uL (0.4-5.4); Lymphocytes % (auto) 3.5 % (10.0-50.0); Mean Corpuscular Hemoglobin 28.3 pg (28.0-32.0); Mean Corpuscular Hgb Conc. 34.5 g/dL (32.0-36.0); Mean Corpuscular Volume 82.1 fL (80.0-100.0); Monocytes # (auto) 0.5 10 ^3/uL (0-1.3); Monocytes % (auto) 5.9 % (0.0-12.0); Neutrophils # (auto) 8.3 10 ^3/uL (1.6-8.6); Nucleated Red Blood Cells % 0.1 %; Platelet Count (auto) 167 10^3/uL (140-450); Red Blood Cells 3.96 10^6/uL (4.5-5.90); Red Cell Distribution Width 17.9 % (11.8-14.3); White Blood Cell 9.3 10^3/uL (4.4-10.8)
[2020-08-30] MEDS: FUROSEMIDE 40 MG TAB PO SCH (06:00)
[2020-08-30 06:09] LABS: Calcium 8.9 mg/dL (8.5-10.1); Potassium 4.3 mmol/L (3.5-5.1)
[2020-08-30 06:11] LABS: BUN/Creatinine Ratio 11.4
[2020-08-30 09:12] VITALS: BP 133/104
[2020-08-30] MEDS: DOCUSATE SOD 100 MG CAP PO SCH (09:13)
[2020-08-30] MEDS: CARVEDILOL 12.5 MG TAB PO SCH (09:13)
[2020-08-30] MEDS: cefTRIAXone 1GM/50ML D5W 50 ML IV SCH (09:13)
[2020-08-30] MEDS: FAMOTIDINE 20 MG TAB PO SCH (09:14)
[2020-08-30] MEDS ORDERED: PARoxetine 20 MG TAB PO SCH (10:00)
[2020-08-30] MEDS ORDERED: SPIRONOLACTONE 25 MG TAB PO SCH (10:00)
[2020-08-30] MEDS ORDERED: amLODIPine BESYLATE 5 MG TAB PO SCH (10:00)
[2020-08-30] MEDS ORDERED: LISINOPRIL 20 MG TAB PO SCH (10:00)
[2020-09-02] MEDS ORDERED: CEPH250C PO (13:55)
== END 2020-08-30 14:00 | disposition left against medical advice (07) | DRG 466 ==
LOC: ER 18:34 → OVERFLOW 08-28 14:41
PROVIDERS: ADMIT Nurse Practitioner Acute Care; ATTEND Internal Medicine
DX: T83.022A Displacement of nephrostomy catheter, initial encounter (principal); N18.30 Chronic kidney disease, stage 3 unspecified; N13.6 Pyonephrosis; N17.0 Acute kidney failure with tubular necrosis; D63.8 Anemia in other chronic diseases classified elsewhere; E87.1 Hypo-osmolality and hyponatremia; R64 Cachexia; I12.9 Hypertensive chronic kidney disease with stage 1 through stage 4 chronic kidney disease, or unspecified chronic kidney disease; Z53.29 Procedure and treatment not carried out because of patient's decision for other reasons; C64.9 Malignant neoplasm of unspecified kidney, except renal pelvis; R19.09 Other intra-abdominal and pelvic swelling, mass and lump; F17.210 Nicotine dependence, cigarettes, uncomplicated; Z20.828 Contact with and (suspected) exposure to other viral communicable diseases; Y84.6 Urinary catheterization as the cause of abnormal reaction of the patient, or of later complication, without mention of misadventure at the time of the procedure; Z79.899 Other long term (current) drug therapy; Z82.49 Family history of ischemic heart disease and other diseases of the circulatory system; Z83.3 Family history of diabetes mellitus; Y92.89 Other specified places as the place of occurrence of the external cause; Z85.47 Personal history of malignant neoplasm of testis; Z85.528 Personal history of other malignant neoplasm of kidney; Z68.1 Body mass index [BMI] 19.9 or less, adult; E44.1 Mild protein-calorie malnutrition; Z46.6 Encounter for fitting and adjustment of urinary device
CPT/HCPCS: 36415; 74176; 80048; 80053; 81001; 83735; 85025; 85610; 85730; 87086; 87088; 87186; 87426; 96365; G0378; J0696; J2405

== ENCOUNTER 2020-08-30 16:11 | Inpatient (IN) | payer MEDICAID ==
[~2020-08-30] VITALS: Ht 188 cm; Wt 52.2 kg
[2020-08-30] MEDS ORDERED: MORPHINE SULF INJ 2 MG/ML SYRINGE 1ML IV PRN (18:30)
[2020-08-30] MEDS ORDERED: ACETAMINOPHEN 500 MG TAB PO PRN (18:30)
[2020-08-30] MEDS ORDERED: SODIUM CHLORIDE 0.9% 1,000 ML IV SCH (18:30)
[2020-08-30] MEDS ORDERED: HYDROcodone-ACET 5/325MG TAB PO PRN (18:30)
[2020-08-30] MEDS ORDERED: ONDANSETRON HCL 4 MG/2 ML VIAL IV PRN (18:30)
[2020-08-30 18:58] LABS: Basophils # (auto) 0 10 ^3/uL (0-0.2); Basophils % (auto) 0.2 % (0.0-2.0); Eosinophils # (auto) 0 10 ^3/uL (0-0.8); Eosinophils % (auto) 0.2 % (0.0-7.0); Hematocrit 31.7 % (41.0-53.0); Hemoglobin 10.9 g/dL (13.5-17.5); Lymphocytes # (auto) 0.3 10 ^3/uL (0.4-5.4); Lymphocytes % (auto) 2.5 % (10.0-50.0); Mean Corpuscular Hemoglobin 28.1 pg (28.0-32.0); Mean Corpuscular Hgb Conc. 34.3 g/dL (32.0-36.0); Monocytes # (auto) 0.4 10 ^3/uL (0-1.3); Neutrophils # (auto) 9.6 10 ^3/uL (1.6-8.6); Neutrophils % (auto) 93.1 % (37.0-80.0); Platelet Count (auto) 238 10^3/uL (140-450); Red Blood Cells 3.87 10^6/uL (4.5-5.90); Red Cell Distribution Width 17.7 % (11.8-14.3); White Blood Cell 10.3 10^3/uL (4.4-10.8)
[2020-08-30 19:09] LABS: INR 1.07 (0.9-1.15)
[2020-08-30 19:14] LABS: Alanine Aminotransferase 14 U/L (16-61); Anion Gap 11 (5-15); Aspartate Aminotransferase 24 U/L (15-37); BUN/Creatinine Ratio 13.7; Blood Urea Nitrogen 28 mg/dL (7-18); Calcium 8.7 mg/dL (8.5-10.1); Carbon Dioxide 22 mmol/L (21-32); Chloride 96 mmol/L (98-107); GFR African American 44 mL/min; GFR Non-African American 37 mL/min; Glucose 175 mg/dL (74-106); Lipase 55 U/L (73-393); Magnesium 2.1 mg/dL (1.6-2.6); Sodium 129 mmol/L (136-145)
[2020-08-30 19:20] LABS: Alkaline Phosphatase 148 U/L (45-117); Bilirubin, Total 0.5 mg/dL (0.2-1.0)
[2020-08-31] VITALS: BP 154/117
[2020-08-31] MEDS ORDERED: cefTRIAXone 1GM/50ML D5W 50 ML IV SCH (09:00)
[2020-09-02] MEDS ORDERED: CEPH250C PO (13:55)
== END 2020-08-31 07:00 | disposition left against medical advice (07) | DRG 466 ==
LOC: ER 16:11 → OVERFLOW 18:32
PROVIDERS: ADMIT Nurse Practitioner Acute Care; ATTEND Internal Medicine
DX: T83.022A Displacement of nephrostomy catheter, initial encounter (principal); C62.92 Malignant neoplasm of left testis, unspecified whether descended or undescended; D63.1 Anemia in chronic kidney disease; F17.210 Nicotine dependence, cigarettes, uncomplicated; I12.9 Hypertensive chronic kidney disease with stage 1 through stage 4 chronic kidney disease, or unspecified chronic kidney disease; N13.6 Pyonephrosis; R64 Cachexia; Z20.828 Contact with and (suspected) exposure to other viral communicable diseases; Y73.2 Prosthetic and other implants, materials and accessory gastroenterology and urology devices associated with adverse incidents; E87.1 Hypo-osmolality and hyponatremia; N17.0 Acute kidney failure with tubular necrosis; Z43.6 Encounter for attention to other artificial openings of urinary tract; Z79.899 Other long term (current) drug therapy; Z82.49 Family history of ischemic heart disease and other diseases of the circulatory system; Z83.3 Family history of diabetes mellitus; Z85.47 Personal history of malignant neoplasm of testis; Z90.79 Acquired absence of other genital organ(s); N18.31 Chronic kidney disease, stage 3a
CPT/HCPCS: 36415; 80053; 83605; 83690; 83735; 84484; 85025; 85610; 87040; G0378; J0696

== ENCOUNTER 2020-09-01 08:46 | Inpatient (IN) | payer MEDICAID ==
[~2020-09-01] VITALS: Ht 188 cm; Wt 53.1 kg
[2020-09-01 10:21] LABS: Basophils # (auto) 0 10 ^3/uL (0-0.2); Basophils % (auto) 0.1 % (0.0-2.0); Eosinophils # (auto) 0 10 ^3/uL (0-0.8); Hematocrit 34.4 % (41.0-53.0); Hemoglobin 11.5 g/dL (13.5-17.5); Lymphocytes # (auto) 0.3 10 ^3/uL (0.4-5.4); Lymphocytes % (auto) 1.7 % (10.0-50.0); Mean Corpuscular Hemoglobin 27.8 pg (28.0-32.0); Mean Corpuscular Hgb Conc. 33.4 g/dL (32.0-36.0); Mean Corpuscular Volume 83.1 fL (80.0-100.0); Monocytes # (auto) 0.9 10 ^3/uL (0-1.3); Monocytes % (auto) 5.6 % (0.0-12.0); Neutrophils # (auto) 14.6 10 ^3/uL (1.6-8.6); Neutrophils % (auto) 92.6 % (37.0-80.0); Red Blood Cells 4.14 10^6/uL (4.5-5.90); White Blood Cell 15.8 10^3/uL (4.4-10.8)
[2020-09-01 10:37] LABS: Potassium 4.1 mmol/L (3.5-5.1)
[2020-09-01 10:44] LABS: Albumin 2.8 g/dL (3.4-5.0); BUN/Creatinine Ratio 11.9; Bilirubin, Total 0.8 mg/dL (0.2-1.0); Calcium 9.6 mg/dL (8.5-10.1); Total Protein 7.3 g/dL (6.4-8.2)
[2020-09-01 10:51] LABS: Lactic Acid w/Reflex 2.3 mmol/L (0.4-2.0)
[2020-09-01] MEDS ORDERED: ONDANSETRON HCL 4 MG/2 ML VIAL IV PRN (19:45)
[2020-09-01] MEDS ORDERED: ACETAMINOPHEN 500 MG TAB PO PRN (19:45)
[2020-09-01] MEDS ORDERED: MORPHINE SULFATE INJECTION 2 MG/ML SYRG IV PRN (19:45)
[2020-09-02] MEDS: HYDROcodone-ACET 5/325MG TAB PO PRN (02:02)
[2020-09-02] MEDS ORDERED: FAMOTIDINE 20 MG TAB PO SCH (10:00)
[2020-09-02 10:19] LABS: Basophils # (auto) 0 10 ^3/uL (0-0.2); Basophils % (auto) 0.1 % (0.0-2.0); Eosinophils # (auto) 0 10 ^3/uL (0-0.8); Eosinophils % (auto) 0.2 % (0.0-7.0); Hematocrit 29.4 % (41.0-53.0); Hemoglobin 10.1 g/dL (13.5-17.5); Lymphocytes # (auto) 0.4 10 ^3/uL (0.4-5.4); Lymphocytes % (auto) 4.3 % (10.0-50.0); Mean Corpuscular Hgb Conc. 34.3 g/dL (32.0-36.0); Mean Corpuscular Volume 81.5 fL (80.0-100.0); Monocytes # (auto) 0.6 10 ^3/uL (0-1.3); Monocytes % (auto) 6.5 % (0.0-12.0); Neutrophils # (auto) 8.9 10 ^3/uL (1.6-8.6); Neutrophils % (auto) 88.9 % (37.0-80.0); Nucleated Red Blood Cells % 0.1 %; Red Blood Cells 3.61 10^6/uL (4.5-5.90); Red Cell Distribution Width 18.2 % (11.8-14.3)
[2020-09-02] MEDS ORDERED: LIDOCAINE 2%HCL (LOCAL ANESTH.) INJ 20ML MDV ONE (10:44)
[2020-09-02] MEDS ORDERED: IOHEXOL 350 MG/ML 100ML IJ ONE (10:54)
[2020-09-02 11:13] LABS: INR 1.03 (0.9-1.15); Partial Thromboplastin Time 31.6 sec (23.0-31.2)
[2020-09-02] MEDS ORDERED: MIDAZOLAM HCL 2MG/2ML 2ml VIAL (1mg/ml) ONE (11:22)
[2020-09-02] MEDS ORDERED: fentaNYL CITRATE 100 MCG/2 ML VL ONE (11:22)
[2020-09-02] MEDS ORDERED: diphenhdrAMINE HCL 50 MG/1 ML VL ONE (11:22)
[2020-09-02] MEDS ORDERED: PANTOPRAZOLE 40 MG TAB PO ONE (11:30)
[2020-09-02] MEDS: SODIUM CHLORIDE 0.9% 1,000 ML IV SCH ×2 (12:56→22:33)
[2020-09-02] MEDS: DOCUSATE SOD 100 MG CAP PO SCH ×2 (12:57→22:33)
[2020-09-02] MEDS: cefTRIAXone 1GM/50ML D5W 50 ML IV SCH (12:57)
[2020-09-02] MEDS ORDERED: LABETALOL HCL 5 MG/ML 4ML SYRINGE IV PRN (13:45)
[2020-09-02] MEDS ORDERED: NIFE1TAB30 PO (13:55)
[2020-09-02] MEDS ORDERED: ACET-3 PO (13:55)
[2020-09-02] MEDS ORDERED: ATOR40TA52 PO (13:55)
[2020-09-02] MEDS ORDERED: CEPH-322 PO (13:55)
[2020-09-02] MEDS ORDERED: CIP500T PO (13:55)
[2020-09-02] MEDS ORDERED: ASPI325T4 PO (13:55)
[2020-09-02 13:56] LABS: Urine Bacteria FEW /hpf (None Seen); Urine Blood 3+ /uL (Negative); Urine Specific Gravity 1.024 (1.001-1.035); Urine WBC 15 /hpf (0 - 3)
[2020-09-02] MEDS: NIFEdipine ER 30 MG TAB PO SCH (14:06)
[2020-09-02] MEDS ORDERED: cloNIDine HCL 0.1 MG TAB PO PRN (18:00)
[2020-09-02] MEDS ORDERED: TAMSULOSIN HYDROCHLORIDE 0.4 MG CAP PO SCH (18:00)
[2020-09-02 20:00] VITALS: BP 110/71
[2020-09-02 22:00] VITALS: BP 110/71
[2020-09-02 22:04] LABS: Hematocrit 28.7 % (41.0-53.0)
[2020-09-02 22:20] LABS: BUN/Creatinine Ratio 18.2; Calcium 8.4 mg/dL (8.5-10.1); Potassium 3.9 mmol/L (3.5-5.1)
[2020-09-02] MEDS: PANTOPRAZOLE 40 MG TAB PO SCH (22:33)
[2020-09-03] MEDS: HYDROcodone-ACET 5/325MG TAB PO PRN (01:00)
[2020-09-03 03:14] LABS: Hematocrit 29.2 % (41.0-53.0)
[2020-09-03] MEDS: SODIUM CHLORIDE 0.9% 1,000 ML IV SCH ×2 (03:45→11:45)
[2020-09-03 07:30] VITALS: BP 111/76
[2020-09-03 09:00] VITALS: BP 111/76
[2020-09-03] MEDS: DOCUSATE SOD 100 MG CAP PO SCH (10:00)
[2020-09-03 10:22] LABS: Albumin 2.5 g/dL (3.4-5.0); Calcium 8.5 mg/dL (8.5-10.1); Potassium 3.9 mmol/L (3.5-5.1)
[2020-09-03 10:27] LABS: BUN/Creatinine Ratio 16.8; Bilirubin, Total 0.6 mg/dL (0.2-1.0); Total Protein 6.6 g/dL (6.4-8.2)
[2020-09-03 10:38] LABS: Basophils # (auto) 0 10 ^3/uL (0-0.2); Basophils % (auto) 0.2 % (0.0-2.0); Eosinophils # (auto) 0 10 ^3/uL (0-0.8); Eosinophils % (auto) 0.3 % (0.0-7.0); Hemoglobin 9.8 g/dL (13.5-17.5); Lymphocytes # (auto) 0.3 10 ^3/uL (0.4-5.4); Lymphocytes % (auto) 5.1 % (10.0-50.0); Mean Corpuscular Hemoglobin 28.7 pg (28.0-32.0); Mean Corpuscular Hgb Conc. 34.8 g/dL (32.0-36.0); Mean Corpuscular Volume 82.5 fL (80.0-100.0); Monocytes # (auto) 0.3 10 ^3/uL (0-1.3); Neutrophils # (auto) 5.1 10 ^3/uL (1.6-8.6); Neutrophils % (auto) 89.4 % (37.0-80.0); Nucleated Red Blood Cells % 0.1 %; Red Cell Distribution Width 18.2 % (11.8-14.3); White Blood Cell 5.7 10^3/uL (4.4-10.8)
[2020-09-03] MEDS: cefTRIAXone 1GM/50ML D5W 50 ML IV SCH (11:05)
[2020-09-03] MEDS: PANTOPRAZOLE 40 MG TAB PO SCH (11:07)
[2020-09-03] MEDS: NIFEdipine ER 30 MG TAB PO SCH (11:07)
[2020-09-03 13:00] VITALS: BP 117/79
[2020-09-03 16:44] VITALS: BP 117/79
[2020-09-03 17:00] VITALS: BP 113/74
== END 2020-09-03 17:30 | disposition home or self-care (01) | DRG 466 ==
LOC: ER 08:46 → OVERFLOW 08:47 → CENTRAL 09-02 19:15
PROVIDERS: ADMIT Nurse Practitioner Acute Care; ATTEND Internal Medicine
PROC: 0T9430Z Drainage of Left Kidney Pelvis with Drainage Device, Percutaneous Approach (ICD-10-PCS; principal; 2020-09-02)
PROC: 0T25X0Z Change Drainage Device in Kidney, External Approach (ICD-10-PCS; 2020-09-02)
PROC: BT141ZZ Fluoroscopy of Kidneys, Ureters and Bladder using Low Osmolar Contrast (ICD-10-PCS; 2020-09-02)
DX: T83.022A Displacement of nephrostomy catheter, initial encounter (principal); A41.9 Sepsis, unspecified organism; N17.0 Acute kidney failure with tubular necrosis; R64 Cachexia; N13.6 Pyonephrosis; N18.30 Chronic kidney disease, stage 3 unspecified; E86.0 Dehydration; F17.210 Nicotine dependence, cigarettes, uncomplicated; I12.9 Hypertensive chronic kidney disease with stage 1 through stage 4 chronic kidney disease, or unspecified chronic kidney disease; N43.3 Hydrocele, unspecified; Y73.2 Prosthetic and other implants, materials and accessory gastroenterology and urology devices associated with adverse incidents; Z79.899 Other long term (current) drug therapy; Z82.49 Family history of ischemic heart disease and other diseases of the circulatory system; Z83.3 Family history of diabetes mellitus; Z85.47 Personal history of malignant neoplasm of testis; Z85.528 Personal history of other malignant neoplasm of kidney; C64.2 Malignant neoplasm of left kidney, except renal pelvis; Z68.1 Body mass index [BMI] 19.9 or less, adult; Z91.19 Patient's noncompliance with other medical treatment and regimen; D64.9 Anemia, unspecified; Z20.822 Contact with and (suspected) exposure to COVID-19; E44.0 Moderate protein-calorie malnutrition
CPT/HCPCS: 36415; 50430; 50432; 50435; 71045; 74425; 76000; 76942; 80048; 80053; 81001; 83605; 85014; 85018; 85025; 85610; 85730; 87040; 87086; 87426; 99152; C1729; G0378; J0696; J2250; J2405; J3490

== ENCOUNTER 2020-10-12 10:34 | Inpatient (IN) | payer MEDICAID ==
[~2020-10-12] VITALS: Ht 188 cm; Wt 47.8 kg
[~2020-10-12 10:34] MED LIST changes: +ACET-3 PO; +ASPI325T4 PO; -ATO40T PO; +ATOR40TA52 PO; -CAR125T PO; +CEPH250C PO; +CIP500T PO; -CLON0.1T PO; -FURO40TA4 PO; -LISI40TA11 PO; +NIFE1TAB30 PO; -PAR20T PO; -SPIR50TA5 PO
[2020-10-12] MEDS ORDERED: SODIUM CHLORIDE 0.9% 1,000 ML IV ONE (11:00)
[2020-10-12 11:25] LABS: Basophils # (auto) 0 10 ^3/uL (0-0.2); Basophils % (auto) 0.2 % (0.0-2.0); Eosinophils # (auto) 0 10 ^3/uL (0-0.8); Hematocrit 31.8 % (41.0-53.0); Hemoglobin 10.5 g/dL (13.5-17.5); Lymphocytes # (auto) 0.2 10 ^3/uL (0.4-5.4); Lymphocytes % (auto) 2.4 % (10.0-50.0); Mean Corpuscular Hemoglobin 27.8 pg (28.0-32.0); Mean Corpuscular Volume 84.5 fL (80.0-100.0); Monocytes # (auto) 0.3 10 ^3/uL (0-1.3); Monocytes % (auto) 3.2 % (0.0-12.0); Neutrophils # (auto) 9.6 10 ^3/uL (1.6-8.6); Neutrophils % (auto) 94.2 % (37.0-80.0); Platelet Count (auto) 166 10^3/uL (140-450); Red Blood Cells 3.77 10^6/uL (4.5-5.90); Red Cell Distribution Width 19.2 % (11.8-14.3); White Blood Cell 10.2 10^3/uL (4.4-10.8)
[2020-10-12] MEDS ORDERED: MORPHINE SULFATE 4 MG/ML SYR/VIAL IV ONE (11:30)
[2020-10-12] MEDS ORDERED: ONDANSETRON HCL 4 MG/2 ML VIAL IV ONE (11:30)
[2020-10-12 12:09] LABS: Calcium 7.6 mg/dL (8.5-10.1)
[2020-10-12 12:15] LABS: Albumin 2.2 g/dL (3.4-5.0); BUN/Creatinine Ratio 20.5; Bilirubin, Total 0.5 mg/dL (0.2-1.0); Total Protein 6.5 g/dL (6.4-8.2)
[2020-10-12] MEDS ORDERED: SODIUM BICARBONATE 8.4 % INJ 50ML VIAL IV ONE (12:30)
[2020-10-12] MEDS ORDERED: CALCIUM GLUC 4.65meq/50ml D5AE 50 ML IV ONE (12:30)
[2020-10-12] MEDS ORDERED: LORazepam 2MG/ML-1ML VIAL IV ONE (13:00)
[2020-10-12] MEDS ORDERED: LORazepam 2MG/ML-1ML VIAL ONE (13:02)
[2020-10-12 13:14] LABS: Urine Bacteria MOD /hpf (None Seen); Urine Blood 3+ /uL (Negative); Urine Budding Yeast OCCASIONAL /hpf (None Seen); Urine Mucus FEW (None Seen); Urine Specific Gravity 1.014 (1.001-1.035); Urine WBC 1159 /hpf (0 - 3); Urine WBC Clumps PRESENT /hpf (None Seen)
[2020-10-12] MEDS ORDERED: ALBUTEROL SULF 2.5 MG/0.5ML(0.5%) NEB SOLN NEB ONE (13:15)
[2020-10-12] MEDS ORDERED: DEXTROSE (50%) 50ML SYRG IV ONE (13:15)
[2020-10-12] MEDS ORDERED: SODIUM ZIRCONIUM CYCL 10 GM PAK PO ONE (13:15)
[2020-10-12] MEDS ORDERED: InsuLIN REG 1unit/0.01ml Soln (100units/ml) IV ONE (13:15)
[2020-10-12] MEDS ORDERED: NITROGLYCERIN 0.4 MG SL TAB SL PRN (13:30)
[2020-10-12] MEDS ORDERED: ONDANSETRON HCL 4 MG/2 ML VIAL IV PRN (13:30)
[2020-10-12] MEDS ORDERED: ACETAMINOPHEN 500 MG TAB PO PRN (13:30)
[2020-10-12] MEDS ORDERED: MORPHINE SULF INJ 2 MG/ML SYRINGE 1ML IV PRN (13:30)
[2020-10-12] MEDS: cefTRIAXone 1GM/50ML D5W 50 ML IV SCH (14:01)
[2020-10-12] MEDS: SODIUM BICARBONATE 50ML VIAL 150 ML in D5W 5% 1,000 ML IV SCH (14:34)
[2020-10-12] MEDS: MORPHINE SULF INJ 2 MG/ML SYRINGE 1ML IV PRN ×2 (15:30→20:39)
[2020-10-12] MEDS: BUMETANIDE 2.5mg/10ml (0.25 mg/ml) INJ IV SCH (16:54)
[2020-10-12] MEDS: SODIUM ZIRCONIUM CYCL 10 GM PAK PO SCH (22:00)
[2020-10-13] MEDS: SODIUM BICARBONATE 50ML VIAL 150 ML in D5W 5% 1,000 ML IV SCH ×2 (01:00→12:50)
[2020-10-13] MEDS ORDERED: MORPHINE SULF INJ 2 MG/ML SYRINGE 1ML IM PRN (01:45)
[2020-10-13] MEDS: SODIUM ZIRCONIUM CYCL 10 GM PAK PO SCH ×3 (06:00→21:49)
[2020-10-13] MEDS ORDERED: MORPHINE SULF INJ 2 MG/ML SYRINGE 1ML IV PRN (07:30)
[2020-10-13] MEDS: cefTRIAXone 1GM/50ML D5W 50 ML IV SCH (09:14)
[2020-10-13] MEDS: FAMOTIDINE 20 MG TAB PO SCH (10:00)
[2020-10-13] MEDS: BUMETANIDE 2.5mg/10ml (0.25 mg/ml) INJ IV SCH (12:46)
[2020-10-13] MEDS: MORPHINE SULF INJ 2 MG/ML SYRINGE 1ML IV PRN ×2 (13:55→21:50)
[2020-10-13 22:42] LABS: INR 1.35 (0.9-1.15); Partial Thromboplastin Time 31.2 sec (23.0-31.2)
[2020-10-14] MEDS: MORPHINE SULF INJ 2 MG/ML SYRINGE 1ML IV PRN ×6 (00:55→23:40)
[2020-10-14] MEDS: SODIUM BICARBONATE 50ML VIAL 150 ML in D5W 5% 1,000 ML IV SCH ×3 (01:21→23:02)
[2020-10-14 09:00] VITALS: BP 155/94
[2020-10-14] MEDS: FAMOTIDINE 20 MG TAB PO SCH (10:00)
[2020-10-14] MEDS: cefTRIAXone 1GM/50ML D5W 50 ML IV SCH (10:02)
[2020-10-14] MEDS: BUMETANIDE 2.5mg/10ml (0.25 mg/ml) INJ IV SCH (10:03)
[2020-10-14 13:00] VITALS: BP 128/74
[2020-10-14] MEDS ORDERED: LIDOCAINE 2%HCL (LOCAL ANESTH.) INJ 20ML MDV ONE (15:40)
[2020-10-14] MEDS ORDERED: IODIXANOL 320MG/ML 100ML BTL IV ONE (15:40)
[2020-10-14] MEDS ORDERED: fentaNYL CITRATE 100 MCG/2 ML VL ONE (16:04)
[2020-10-14] MEDS ORDERED: MIDAZOLAM HCL 1MG/1ML-2 ML VIAL ONE (16:04)
[2020-10-14 17:00] VITALS: BP 112/91
[2020-10-14 22:00] VITALS: BP 128/74
[2020-10-14] MEDS: HYDROcodone-ACET 5/325MG TAB PO PRN (23:40)
[2020-10-15] MEDS: LORazepam 2MG/ML-1ML VIAL IV PRN ×4 (01:50→15:37)
[2020-10-15] MEDS: MORPHINE SULF INJ 2 MG/ML SYRINGE 1ML IV PRN ×6 (01:50→17:00)
[2020-10-15 05:00] VITALS: BP 92/73
[2020-10-15] MEDS: HYDROcodone-ACET 5/325MG TAB PO PRN (06:28)
[2020-10-15 09:00] VITALS: BP 100/70
[2020-10-15] MEDS: BUMETANIDE 2.5mg/10ml (0.25 mg/ml) INJ IV SCH (09:34)
[2020-10-15] MEDS: cefTRIAXone 1GM/50ML D5W 50 ML IV SCH (09:34)
[2020-10-15] MEDS: FAMOTIDINE 20 MG TAB PO SCH (09:38)
[2020-10-15] MEDS: SODIUM BICARBONATE 50ML VIAL 150 ML in D5W 5% 1,000 ML IV SCH (10:30)
[2020-10-15 13:00] VITALS: BP 102/77
[2020-10-15 13:39] VITALS: BP 100/70
[2020-10-15 17:00] VITALS: BP 93/62
== END 2020-10-15 18:30 | disposition hospice, home (50) | DRG 720 ==
LOC: EDUNIT# 10:34 → EDBD 10:34 → ER 10:34 → TELE 13:23 → DOU IN ADS 10-14 09:53 → TELE-EAST 10-15 02:40
PROVIDERS: ADMIT Nurse Practitioner Acute Care; ATTEND Family Medicine
PROC: 0T9130Z Drainage of Left Kidney with Drainage Device, Percutaneous Approach (ICD-10-PCS; principal; 2020-10-14)
PROC: 0T25X0Z Change Drainage Device in Kidney, External Approach (ICD-10-PCS; 2020-10-14)
PROC: BT131ZZ Fluoroscopy of Bilateral Kidneys using Low Osmolar Contrast (ICD-10-PCS; 2020-10-14)
DX: A41.9 Sepsis, unspecified organism (principal); E43 Unspecified severe protein-calorie malnutrition; N17.9 Acute kidney failure, unspecified; G93.40 Encephalopathy, unspecified; R64 Cachexia; E87.5 Hyperkalemia; T83.012A Breakdown (mechanical) of nephrostomy catheter, initial encounter; E87.2 Acidosis; E87.1 Hypo-osmolality and hyponatremia; Z20.822 Contact with and (suspected) exposure to COVID-19; C64.9 Malignant neoplasm of unspecified kidney, except renal pelvis; R62.7 Adult failure to thrive; E16.2 Hypoglycemia, unspecified; D64.9 Anemia, unspecified; Z68.1 Body mass index [BMI] 19.9 or less, adult; B95.2 Enterococcus as the cause of diseases classified elsewhere; B96.89 Other specified bacterial agents as the cause of diseases classified elsewhere; F17.210 Nicotine dependence, cigarettes, uncomplicated; Z66 Do not resuscitate; N18.9 Chronic kidney disease, unspecified; N13.6 Pyonephrosis; I50.9 Heart failure, unspecified; I13.0 Hypertensive heart and chronic kidney disease with heart failure and stage 1 through stage 4 chronic kidney disease, or unspecified chronic kidney disease; Y73.2 Prosthetic and other implants, materials and accessory gastroenterology and urology devices associated with adverse incidents; Z51.5 Encounter for palliative care; Z43.6 Encounter for attention to other artificial openings of urinary tract; Z82.49 Family history of ischemic heart disease and other diseases of the circulatory system; Z85.47 Personal history of malignant neoplasm of testis; Z90.79 Acquired absence of other genital organ(s); Z79.82 Long term (current) use of aspirin; Z83.3 Family history of diabetes mellitus; Z79.899 Other long term (current) drug therapy; Y92.89 Other specified places as the place of occurrence of the external cause
CPT/HCPCS: 36415; 50435; 74018; 74425; 76775; 76942; 80053; 81001; 82962; 85025; 85610; 85730; 87086; 87088; 87186; 87426; 94640; 96361; 96365; 96375; 99152; 99153; 99291; C1729; G0378; J0610; J0696; J1642; J1815; J2250; J2405; Q9967